=== PATIENT | female | born 1955 | race African-American/Black ===

== ENCOUNTER → 2018-03-06 | Outpatient (CLI) | payer MEDICARE, MEDICAID ==
[~2018-03-06] MED LIST: NOR10T PO; PHEN100C70 PO; PHEN32.49 PO
[2018-03-06 10:19] LABS: Basophils # (auto) 0 uL; Basophils % (auto) 0.5 % (0.0-2.0); Eosinophils # (auto) 0.1 uL; Eosinophils % (auto) 1.5 % (0.0-7.0); Hematocrit 39.9 % (36.0-46.0); Hemoglobin 13.1 g/dL (12.2-16.2); Lymphocytes # (auto) 2.7 uL; Lymphocytes % (auto) 33.9 % (10.0-50.0); Mean Corpuscular Hemoglobin 27.7 pg (28.0-32.0); Mean Corpuscular Hgb Conc. 32.7 g/dL (32.0-36.0); Mean Corpuscular Volume 84.7 fL (80.0-100.0); Monocytes # (auto) 0.5 uL; Monocytes % (auto) 5.8 % (0.0-12.0); Neutrophils # (auto) 4.6 uL; Neutrophils % (auto) 58.3 % (37.0-80.0); Platelet Count (auto) 341 10^3/uL (140-450); Red Blood Cells 4.71 10^6/uL (4.0-5.20); Red Cell Distribution Width 14.6 % (11.8-14.3); White Blood Cell 7.8 10^3/uL (4.4-10.8)
[2018-03-06 10:37] LABS: Urine Bacteria NONE SEEN /hpf (None Seen); Urine Blood Negative /uL (Negative); Urine Mucus FEW (None Seen); Urine Specific Gravity 1.012 (1.001-1.035); Urine WBC 9 /hpf (0 - 5)
[2018-03-06 10:39] LABS: Albumin 3.8 g/dL (3.4-5.0); BUN/Creatinine Ratio 16.7; Bilirubin, Total 0.4 mg/dL (0.2-1.0); Total Protein 7.8 g/dL (6.4-8.2)
== END | disposition home or self-care (01) ==
LOC: LAB 09:45
PROVIDERS: ATTEND Nurse Practitioner
DX: E78.5 Hyperlipidemia, unspecified (principal); E55.9 Vitamin D deficiency, unspecified; I12.9 Hypertensive chronic kidney disease with stage 1 through stage 4 chronic kidney disease, or unspecified chronic kidney disease; N18.2 Chronic kidney disease, stage 2 (mild)
CPT/HCPCS: 36415; 80053; 80061; 81001; 82306; 84443; 85025

== ENCOUNTER 2018-06-04 15:53 | Inpatient (IN) | payer MEDICARE, MEDICAID ==
[~2018-06-04] VITALS: Ht 154.9 cm; Wt 91.3 kg
[2018-06-04 02:30] VITALS: BP 144/80
[2018-06-04] MEDS ORDERED: ASPirin 81 mg TAB PO ONE (17:00)
[2018-06-04 17:17] LABS: Basophils # (auto) 0.1 uL; Basophils % (auto) 0.6 % (0.0-2.0); Eosinophils # (auto) 0.1 uL; Hematocrit 37.2 % (36.0-46.0); Hemoglobin 12.1 g/dL (12.2-16.2); Lymphocytes # (auto) 2.7 uL; Mean Corpuscular Hemoglobin 27.8 pg (28.0-32.0); Mean Corpuscular Hgb Conc. 32.5 g/dL (32.0-36.0); Mean Corpuscular Volume 85.6 fL (80.0-100.0); Monocytes # (auto) 0.5 uL; Monocytes % (auto) 4.7 % (0.0-12.0); Neutrophils # (auto) 6.4 uL; Neutrophils % (auto) 65.7 % (37.0-80.0); Nucleated Red Blood Cells % 0.1 %; Platelet Count (auto) 304 10^3/uL (140-450); Red Blood Cells 4.34 10^6/uL (4.0-5.20); Red Cell Distribution Width 13.8 % (11.8-14.3); White Blood Cell 9.7 10^3/uL (4.4-10.8)
[2018-06-04 17:24] LABS: Alanine Aminotransferase 18 U/L (13-56); Albumin 3.6 g/dL (3.4-5.0); Alkaline Phosphatase 56 U/L (45-117); Anion Gap 7 (5-15); Aspartate Aminotransferase 15 U/L (15-37); BUN/Creatinine Ratio 15.8; Bilirubin, Total 0.4 mg/dL (0.2-1.0); Blood Urea Nitrogen 16 mg/dL (7-18); Calcium 8.7 mg/dL (8.5-10.1); Carbon Dioxide 30 mmol/L (21-32); Chloride 106 mmol/L (98-107); GFR African American 71 mL/min; GFR Non-African American 59 mL/min; Glucose 116 mg/dL (74-106); Magnesium 2.3 mg/dL (1.6-2.6); Potassium 3.6 mmol/L (3.5-5.1); Sodium 143 mmol/L (136-145); Total Protein 7.3 g/dL (6.4-8.2)
[2018-06-04 18:10] LABS: Phenytoin (Dilantin) 1.1 ug/mL (10-20)
[2018-06-04] MEDS ORDERED: IOHEXOL 350 MG/ML 100ML IJ ONE (19:13)
[2018-06-04] MEDS ORDERED: MORPHINE SULFATE 4 MG/ML SYR/VIAL IV ONE (21:00)
[2018-06-04] MEDS ORDERED: PROMETHAZINE HCL 25 MG/ML 1ML IV ONE (21:00)
[2018-06-04] MEDS ORDERED: ACETAMINOPHEN 500 MG TAB PO PRN (22:30)
[2018-06-05] VITALS (7 sets, daily range): BP systolic 108–160; BP diastolic 68–93
[2018-06-05] MEDS ORDERED: LORazepam 2MG/ML-1ML VIAL IV PRN (00:15)
[2018-06-05] MEDS ORDERED: ALBUTEROL SULF 2.5 MG/0.5ML(0.5%) NEB SOLN ONE (01:04)
[2018-06-05] MEDS ORDERED: IPRATROPIUM BROM 0.5 MG/2.5ML INH SOL ONE (01:05)
[2018-06-05] MEDS: ALBUTEROL SULF 2.5 MG/0.5ML(0.5%) NEB SOLN NEB SCH ×4 (01:14→18:53)
[2018-06-05] MEDS: IPRATROPIUM BROM 0.5 MG/2.5ML INH SOL NEB SCH ×4 (01:14→18:53)
[2018-06-05] MEDS: PHENobarbital 32.4 MG TAB PO SCH ×3 (05:40→21:24)
[2018-06-05] MEDS: PHENYTOIN SODIUM 100 MG CAP PO SCH ×3 (05:40→21:24)
[2018-06-05 08:58] LABS: Basophils # (auto) 0.1 uL; Basophils % (auto) 0.9 % (0.0-2.0); Eosinophils # (auto) 0.2 uL; Eosinophils % (auto) 1.7 % (0.0-7.0); Hematocrit 39.8 % (36.0-46.0); Hemoglobin 12.9 g/dL (12.2-16.2); Lymphocytes # (auto) 3.1 uL; Lymphocytes % (auto) 31.5 % (10.0-50.0); Mean Corpuscular Hemoglobin 27.5 pg (28.0-32.0); Mean Corpuscular Hgb Conc. 32.3 g/dL (32.0-36.0); Mean Corpuscular Volume 85.1 fL (80.0-100.0); Monocytes # (auto) 0.6 uL; Neutrophils # (auto) 5.9 uL; Neutrophils % (auto) 59.9 % (37.0-80.0); Nucleated Red Blood Cells % 0.2 %; Platelet Count (auto) 281 10^3/uL (140-450); Red Blood Cells 4.68 10^6/uL (4.0-5.20); Red Cell Distribution Width 14.3 % (11.8-14.3); White Blood Cell 9.9 10^3/uL (4.4-10.8)
[2018-06-05 09:20] LABS: BUN/Creatinine Ratio 15.4; Calcium 7.2 mg/dL (8.5-10.1); Potassium 4.4 mmol/L (3.5-5.1)
[2018-06-05] MEDS: LOSARTAN POTASSIUM 50 MG TAB PO SCH (09:46)
[2018-06-05] MEDS: HYDROcodone-ACET 5/325MG TAB PO PRN ×2 (11:23→21:24)
[2018-06-05] MEDS ORDERED: cefTRIAXone 1GM/10ml IVPUSH 10 ML IV ONE (11:45)
[2018-06-05] MEDS ORDERED: METOPROLOL TARTRATE 25 MG TAB PO ONE (11:45)
[2018-06-05 21:20] LABS: Urine Bacteria NONE SEEN /hpf (None Seen); Urine Blood TRACE /uL (Negative); Urine Specific Gravity 1.017 (1.001-1.035); Urine WBC 154 /hpf (0 - 5)
[2018-06-05] MEDS: METOPROLOL TARTRATE 25 MG TAB PO SCH (21:25)
[2018-06-06] MEDS: IPRATROPIUM BROM 0.5 MG/2.5ML INH SOL NEB SCH ×3 (00:13→12:08)
[2018-06-06] MEDS: ALBUTEROL SULF 2.5 MG/0.5ML(0.5%) NEB SOLN NEB SCH ×3 (00:13→12:08)
[2018-06-06 05:01] VITALS: BP 135/92
[2018-06-06] MEDS: PHENYTOIN SODIUM 100 MG CAP PO SCH ×2 (06:04→14:30)
[2018-06-06] MEDS: PHENobarbital 32.4 MG TAB PO SCH ×2 (06:04→14:29)
[2018-06-06 09:00] VITALS: BP 135/81
[2018-06-06] MEDS ORDERED: cefTRIAXone 1GM/10ml IVPUSH 10 ML IV SCH (09:00)
[2018-06-06] MEDS: LOSARTAN POTASSIUM 50 MG TAB PO SCH (09:17)
[2018-06-06] MEDS: HYDROcodone-ACET 5/325MG TAB PO PRN (09:22)
[2018-06-06] MEDS: METOPROLOL TARTRATE 25 MG TAB PO SCH (10:00)
[2018-06-06 13:00] VITALS: BP 123/77
[2018-06-06 15:25] VITALS: BP 135/81
== END 2018-06-06 15:50 | disposition home or self-care (01) | DRG 204 ==
LOC: ER 15:53 → TELE 15:54 → TELE-WESTW 06-05 02:10
PROVIDERS: ADMIT Nurse Practitioner Family; ATTEND Family Medicine
DX: R07.81 Pleurodynia (principal); N39.0 Urinary tract infection, site not specified; J45.909 Unspecified asthma, uncomplicated; I10 Essential (primary) hypertension; F17.210 Nicotine dependence, cigarettes, uncomplicated; G40.909 Epilepsy, unspecified, not intractable, without status epilepticus; I11.9 Hypertensive heart disease without heart failure; M79.7 Fibromyalgia; R79.1 Abnormal coagulation profile; Z86.73 Personal history of transient ischemic attack (TIA), and cerebral infarction without residual deficits; Z71.6 Tobacco abuse counseling
CPT/HCPCS: 36415; 71046; 71275; 80048; 80053; 80184; 80185; 81001; 83735; 84484; 85025; 85379; 93005; 94640; 96374; 96375; J0696

== ENCOUNTER → 2018-10-02 | Outpatient (CLI) | payer MEDICARE, MEDICAID ==
[2018-10-02 13:03] LABS: Urine Bacteria FEW /hpf (None Seen); Urine Blood TRACE /uL (Negative); Urine Specific Gravity 1.018 (1.001-1.035); Urine WBC 11 /hpf (0 - 5)
[2018-10-02 13:58] LABS: Albumin 3.4 g/dL (3.4-5.0); BUN/Creatinine Ratio 16.5; Bilirubin, Total 0.4 mg/dL (0.2-1.0); Calcium 8.3 mg/dL (8.5-10.1); Total Protein 6.8 g/dL (6.4-8.2)
[2018-10-02 14:08] LABS: Basophils # (auto) 0 uL; Basophils % (auto) 0.3 % (0.0-2.0); Eosinophils # (auto) 0.1 uL; Hematocrit 38.1 % (36.0-46.0); Hemoglobin 12.3 g/dL (12.2-16.2); Lymphocytes # (auto) 2.4 uL; Lymphocytes % (auto) 30.5 % (10.0-50.0); Mean Corpuscular Hemoglobin 27.6 pg (28.0-32.0); Mean Corpuscular Hgb Conc. 32.2 g/dL (32.0-36.0); Mean Corpuscular Volume 85.6 fL (80.0-100.0); Monocytes # (auto) 0.5 uL; Monocytes % (auto) 6.8 % (0.0-12.0); Neutrophils # (auto) 4.9 uL; Neutrophils % (auto) 61.4 % (37.0-80.0); Platelet Count (auto) 320 10^3/uL (140-450); Red Blood Cells 4.44 10^6/uL (4.0-5.20); Red Cell Distribution Width 14.5 % (11.8-14.3)
== END | disposition home or self-care (01) ==
LOC: LAB 12:20
PROVIDERS: ATTEND Nurse Practitioner
DX: I10 Essential (primary) hypertension (principal); E78.5 Hyperlipidemia, unspecified
CPT/HCPCS: 36415; 80053; 80061; 81001; 85025

== ENCOUNTER → 2019-01-15 | Outpatient (CLI) | payer MEDICARE, MEDICAID ==
[2019-01-15 09:44] LABS: Basophils # (auto) 0 uL; Basophils % (auto) 0.3 % (0.0-2.0); Eosinophils # (auto) 0.1 uL; Eosinophils % (auto) 1.4 % (0.0-7.0); Hematocrit 39.4 % (36.0-46.0); Hemoglobin 12.7 g/dL (12.2-16.2); Lymphocytes % (auto) 39.2 % (10.0-50.0); Mean Corpuscular Hemoglobin 27.8 pg (28.0-32.0); Mean Corpuscular Hgb Conc. 32.3 g/dL (32.0-36.0); Monocytes # (auto) 0.5 uL; Monocytes % (auto) 6.1 % (0.0-12.0); Neutrophils # (auto) 4.1 uL; Nucleated Red Blood Cells % 0.1 %; Platelet Count (auto) 320 10^3/uL (140-450); Red Blood Cells 4.58 10^6/uL (4.0-5.20); White Blood Cell 7.7 10^3/uL (4.4-10.8)
[2019-01-15 09:53] LABS: Urine Bacteria FEW /hpf (None Seen); Urine Blood Negative /uL (Negative); Urine Specific Gravity 1.015 (1.001-1.035); Urine WBC 38 /hpf (0 - 5)
[2019-01-15 09:54] LABS: Potassium 4.3 mmol/L (3.5-5.1)
[2019-01-15 10:08] LABS: Albumin 3.6 g/dL (3.4-5.0); BUN/Creatinine Ratio 18.3; Bilirubin, Total 0.3 mg/dL (0.2-1.0); Calcium 8.9 mg/dL (8.5-10.1); Total Protein 7.3 g/dL (6.4-8.2)
== END | disposition home or self-care (01) ==
LOC: LAB 08:22
PROVIDERS: ATTEND Nurse Practitioner
DX: E78.5 Hyperlipidemia, unspecified (principal)
CPT/HCPCS: 36415; 80053; 80061; 81001; 84443; 85025

== ENCOUNTER 2019-06-08 11:10 | Emergency (ER) | payer MEDICARE, MEDICAID ==
[~2019-06-08] VITALS: Ht 154.9 cm; Wt 72.6 kg
[2019-06-08 12:15] VITALS: BP 110/78
[2019-06-08] MEDS ORDERED: KETOROLAC TROMETH 60MG/2ML VIAL IM ONE (12:30)
== END 2019-06-08 13:50 | disposition home or self-care (01) ==
LOC: ER 11:13
DX: S90.31XA Contusion of right foot, initial encounter (principal); J45.909 Unspecified asthma, uncomplicated; E78.5 Hyperlipidemia, unspecified; I10 Essential (primary) hypertension; F17.210 Nicotine dependence, cigarettes, uncomplicated; F12.10 Cannabis abuse, uncomplicated; R06.02 Shortness of breath; W22.8XXA Striking against or struck by other objects, initial encounter; Y93.89 Activity, other specified; Y92.89 Other specified places as the place of occurrence of the external cause; Y99.8 Other external cause status
CPT/HCPCS: 96372; 99283; J1885

== ENCOUNTER 2020-02-01 10:13 | Emergency (ER) | payer MEDICARE, MEDICAID ==
[~2020-02-01] VITALS: Ht 154.9 cm; Wt 74.8 kg
[~2020-02-01 10:13] MED LIST changes: +PHEN32.44 PO; -PHEN32.49 PO
[2020-02-01] MEDS ORDERED: cloNIDine HCL 0.1 MG TAB PO ONE (10:45)
[2020-02-01 11:46] LABS: Basophils # (auto) 0 10 ^3/uL (0-0.2); Basophils % (auto) 0.5 % (0.0-2.0); Eosinophils # (auto) 0.1 10 ^3/uL (0-0.8); Eosinophils % (auto) 1.9 % (0.0-7.0); Hematocrit 41.9 % (36.0-46.0); Hemoglobin 13.6 g/dL (12.2-16.2); Lymphocytes # (auto) 2.4 10 ^3/uL (0.4-5.4); Lymphocytes % (auto) 32.9 % (10.0-50.0); Mean Corpuscular Hgb Conc. 32.5 g/dL (32.0-36.0); Mean Corpuscular Volume 85.9 fL (80.0-100.0); Monocytes # (auto) 0.5 10 ^3/uL (0-1.3); Monocytes % (auto) 6.3 % (0.0-12.0); Neutrophils # (auto) 4.3 10 ^3/uL (1.6-8.6); Neutrophils % (auto) 58.4 % (37.0-80.0); Nucleated Red Blood Cells % 0.1 %; Platelet Count (auto) 325 10^3/uL (140-450); Red Blood Cells 4.88 10^6/uL (4.0-5.20); Red Cell Distribution Width 14.2 % (11.8-14.3); White Blood Cell 7.3 10^3/uL (4.4-10.8)
[2020-02-01 12:14] LABS: Albumin 3.9 g/dL (3.4-5.0); Anion Gap 5 (5-15); Blood Urea Nitrogen 15 mg/dL (7-18); Calcium 8.7 mg/dL (8.5-10.1); Carbon Dioxide 28 mmol/L (21-32); Chloride 107 mmol/L (98-107); Glucose 82 mg/dL (74-106); Potassium 4.7 mmol/L (3.5-5.1); Sodium 140 mmol/L (136-145)
[2020-02-01 12:20] LABS: Alanine Aminotransferase 21 U/L (13-56); Alkaline Phosphatase 73 U/L (45-117); Aspartate Aminotransferase 21 U/L (15-37); BUN/Creatinine Ratio 14.6; Bilirubin, Total 0.3 mg/dL (0.2-1.0); GFR African American 69 mL/min; GFR Non-African American 57 mL/min
[2020-02-01 13:25] VITALS: BP 159/94
== END 2020-02-01 13:30 | disposition home or self-care (01) ==
LOC: ER 10:13
DX: J01.00 Acute maxillary sinusitis, unspecified (principal); M32.9 Systemic lupus erythematosus, unspecified; M19.90 Unspecified osteoarthritis, unspecified site; J45.909 Unspecified asthma, uncomplicated; E78.5 Hyperlipidemia, unspecified; I10 Essential (primary) hypertension
CPT/HCPCS: 36415; 71045; 80053; 82728; 84484; 85025; 85613; 85670; 85705; 85732; 86225; 86235; 87070; 87804; 87880; 93005

== ENCOUNTER → 2020-09-16 | Outpatient (CLI) | payer MEDICARE, MEDICAID | END | disposition home or self-care (01) | LOC: XY 16:08 | PROVIDERS: ATTEND Student in an Organized Health Care Education/Training Program | DX: M62.838 Other muscle spasm (principal); I73.9 Peripheral vascular disease, unspecified; R60.0 Localized edema | CPT/HCPCS: 93925; 93970 ==

== ENCOUNTER 2021-03-28 12:21 | Emergency (ER) | payer MEDICARE, MEDICAID ==
[~2021-03-28] VITALS: Ht 154.9 cm; Wt 73.9 kg
[~2021-03-28 12:21] MED LIST changes: +PHEN100C PO; -PHEN100C70 PO
[2021-03-28 12:33] VITALS: BP 120/78
[2021-03-28] MEDS ORDERED: KETOROLAC TROMETH 60MG/2ML VIAL IM ONE (15:30)
== END 2021-03-28 16:28 | disposition home or self-care (01) ==
LOC: ER 12:21
DX: S76.011A Strain of muscle, fascia and tendon of right hip, initial encounter (principal); S30.0XXA Contusion of lower back and pelvis, initial encounter; Z86.73 Personal history of transient ischemic attack (TIA), and cerebral infarction without residual deficits; F32.9 Major depressive disorder, single episode, unspecified; E78.00 Pure hypercholesterolemia, unspecified; I10 Essential (primary) hypertension; F17.210 Nicotine dependence, cigarettes, uncomplicated; J45.909 Unspecified asthma, uncomplicated; Z79.899 Other long term (current) drug therapy; W01.0XXA Fall on same level from slipping, tripping and stumbling without subsequent striking against object, initial encounter; Y93.89 Activity, other specified; Y92.89 Other specified places as the place of occurrence of the external cause; Y99.8 Other external cause status
CPT/HCPCS: 72220; 73502; 96372; 99284; J1885

== ENCOUNTER 2021-07-18 15:59 | Emergency (ER) | payer MEDICARE, MEDICAID ==
[~2021-07-18] VITALS: Ht 152.4 cm; Wt 72.6 kg
[2021-07-18 16:41] VITALS: BP 147/86
== END 2021-07-18 17:23 | disposition home or self-care (01) ==
LOC: ER 16:00
DX: S63.501A Unspecified sprain of right wrist, initial encounter (principal); M11.231 Other chondrocalcinosis, right wrist; I10 Essential (primary) hypertension; E78.5 Hyperlipidemia, unspecified; J45.909 Unspecified asthma, uncomplicated; F17.210 Nicotine dependence, cigarettes, uncomplicated; Z90.89 Acquired absence of other organs; Z79.899 Other long term (current) drug therapy; W18.39XA Other fall on same level, initial encounter; Y93.89 Activity, other specified; Y92.89 Other specified places as the place of occurrence of the external cause; Y99.8 Other external cause status
CPT/HCPCS: 73110

== ENCOUNTER → 2021-07-22 | Outpatient (CLI) | payer MEDICARE, MEDICAID ==
[2021-07-22 11:11] LABS: Basophils # (auto) 0.1 10 ^3/uL (0-0.2); Basophils % (auto) 0.9 % (0.0-2.0); Eosinophils # (auto) 0.1 10 ^3/uL (0-0.8); Eosinophils % (auto) 1.2 % (0.0-7.0); Hematocrit 38.5 % (36.0-46.0); Hemoglobin 12.5 g/dL (12.2-16.2); Lymphocytes # (auto) 2.7 10 ^3/uL (0.4-5.4); Lymphocytes % (auto) 32.1 % (10.0-50.0); Mean Corpuscular Hemoglobin 27.1 pg (28.0-32.0); Mean Corpuscular Hgb Conc. 32.3 g/dL (32.0-36.0); Mean Corpuscular Volume 83.9 fL (80.0-100.0); Monocytes # (auto) 0.5 10 ^3/uL (0-1.3); Monocytes % (auto) 5.9 % (0.0-12.0); Neutrophils # (auto) 5.1 10 ^3/uL (1.6-8.6); Neutrophils % (auto) 59.9 % (37.0-80.0); Red Blood Cells 4.59 10^6/uL (4.0-5.20); Red Cell Distribution Width 14.3 % (11.8-14.3); White Blood Cell 8.5 10^3/uL (4.4-10.8)
[2021-07-22 11:38] LABS: Urine Bacteria NONE SEEN /hpf (None Seen); Urine Blood Negative /uL (Negative); Urine Specific Gravity 1.012 (1.001-1.035); Urine WBC 1 /hpf (0 - 5)
[2021-07-22 12:04] LABS: Albumin 3.4 g/dL (3.4-5.0); Calcium 9.4 mg/dL (8.5-10.1); Potassium 4.4 mmol/L (3.5-5.1)
[2021-07-22 12:09] LABS: BUN/Creatinine Ratio 18.9; Bilirubin, Total 0.4 mg/dL (0.2-1.0); Total Protein 7.1 g/dL (6.4-8.2)
== END | disposition home or self-care (01) ==
LOC: LAB 10:55
PROVIDERS: ATTEND Student in an Organized Health Care Education/Training Program
DX: I10 Essential (primary) hypertension (principal); M25.50 Pain in unspecified joint; Z79.899 Other long term (current) drug therapy
CPT/HCPCS: 36415; 80053; 80061; 81001; 85025; 86225; 86235; 87086

== ENCOUNTER 2021-10-12 05:30 | Emergency (ER) | payer MEDICARE, MEDICAID ==
[~2021-10-12] VITALS: Ht 172.7 cm; Wt 76.2 kg
[2021-10-12 09:17] VITALS: BP 143/92
== END 2021-10-12 09:45 | disposition home or self-care (01) ==
LOC: ER 05:30
DX: S16.1XXA Strain of muscle, fascia and tendon at neck level, initial encounter (principal); S83.91XA Sprain of unspecified site of right knee, initial encounter; S39.012A Strain of muscle, fascia and tendon of lower back, initial encounter; R51.9 Headache, unspecified; F17.210 Nicotine dependence, cigarettes, uncomplicated; V43.62XA Car passenger injured in collision with other type car in traffic accident, initial encounter; Y93.89 Activity, other specified; Y92.410 Unspecified street and highway as the place of occurrence of the external cause; Y99.8 Other external cause status
CPT/HCPCS: 29505; 70450; 72100; 72125; 73562; 93005

== ENCOUNTER → 2022-02-05 | Outpatient (CLI) | payer MEDICARE, MEDICAID, OTHER ==
[2022-02-05 10:35] LABS: Basophils # (auto) 0 10 ^3/uL (0-0.2); Basophils % (auto) 0.5 % (0.0-2.0); Eosinophils # (auto) 0.1 10 ^3/uL (0-0.8); Eosinophils % (auto) 1.2 % (0.0-7.0); Hematocrit 37.6 % (36.0-46.0); Hemoglobin 12.3 g/dL (12.2-16.2); Lymphocytes # (auto) 2.8 10 ^3/uL (0.4-5.4); Lymphocytes % (auto) 42.5 % (10.0-50.0); Mean Corpuscular Hemoglobin 27.1 pg (28.0-32.0); Mean Corpuscular Hgb Conc. 32.7 g/dL (32.0-36.0); Mean Corpuscular Volume 83.1 fL (80.0-100.0); Monocytes # (auto) 0.4 10 ^3/uL (0-1.3); Monocytes % (auto) 5.7 % (0.0-12.0); Neutrophils # (auto) 3.4 10 ^3/uL (1.6-8.6); Neutrophils % (auto) 50.1 % (37.0-80.0); Nucleated Red Blood Cells % 0.1 %; Red Blood Cells 4.52 10^6/uL (4.0-5.20); Red Cell Distribution Width 13.8 % (11.8-14.3); White Blood Cell 6.7 10^3/uL (4.4-10.8)
[2022-02-05 10:36] LABS: Urine Blood Negative /uL (Negative); Urine Specific Gravity 1.009 (1.001-1.035)
[2022-02-05 11:12] LABS: Albumin 3.6 g/dL (3.4-5.0); Calcium 8.8 mg/dL (8.5-10.1); Potassium 3.7 mmol/L (3.5-5.1)
[2022-02-05 11:19] LABS: BUN/Creatinine Ratio 20.3; Bilirubin, Total 0.6 mg/dL (0.2-1.0)
== END | disposition home or self-care (01) ==
LOC: LAB 10:02
PROVIDERS: ATTEND Student in an Organized Health Care Education/Training Program
DX: N39.0 Urinary tract infection, site not specified (principal); Z12.11 Encounter for screening for malignant neoplasm of colon; I10 Essential (primary) hypertension
CPT/HCPCS: 36415; 80053; 80061; 81003; 84443; 85025; 87086

== ENCOUNTER 2022-05-04 12:06 | Inpatient (IN) | payer MEDICARE, MEDICAID ==
[~2022-05-04] VITALS: Ht 152.4 cm; Wt 135.0 kg
[2022-05-04] MEDS ORDERED: FUROSEMIDE 40 MG/4 ML VIAL IV ONE (12:30)
[2022-05-04 13:41] LABS: Basophils # (auto) 0 10 ^3/uL (0-0.2); Eosinophils # (auto) 0.2 10 ^3/uL (0-0.8); Eosinophils % (auto) 2.4 % (0.0-7.0); Lymphocytes % (auto) 34.6 % (10.0-50.0); Red Cell Distribution Width 14.1 % (11.8-14.3)
[2022-05-04 13:44] LABS: Basophils % (auto) 0.6 % (0.0-2.0); Hematocrit 35.9 % (36.0-46.0); Hemoglobin 11.4 g/dL (12.2-16.2); Lymphocytes # (auto) 2.3 10 ^3/uL (0.4-5.4); Mean Corpuscular Hemoglobin 26.3 pg (28.0-32.0); Mean Corpuscular Hgb Conc. 31.7 g/dL (32.0-36.0); Monocytes # (auto) 0.6 10 ^3/uL (0-1.3); Monocytes % (auto) 8.7 % (0.0-12.0); Neutrophils # (auto) 3.6 10 ^3/uL (1.6-8.6); Neutrophils % (auto) 53.7 % (37.0-80.0); Red Blood Cells 4.33 10^6/uL (4.0-5.20); White Blood Cell 6.7 10^3/uL (4.4-10.8)
[2022-05-04 13:55] LABS: Albumin 3.4 g/dL (3.4-5.0); Calcium 8.9 mg/dL (8.5-10.1); Magnesium 2.3 mg/dL (1.6-2.6); Potassium 3.8 mmol/L (3.5-5.1)
[2022-05-04 13:59] LABS: BUN/Creatinine Ratio 23.6; Bilirubin, Total 0.3 mg/dL (0.2-1.0); Total Protein 6.9 g/dL (6.4-8.2)
[2022-05-04] MEDS ORDERED: ONDANSETRON HCL 4 MG/2 ML VIAL IV PRN (21:45)
[2022-05-04] MEDS ORDERED: ACETAMINOPHEN 325 MG TAB PO PRN (21:45)
[2022-05-04] MEDS ORDERED: TEMAZEPAM 15 MG CAP PO PRN (22:00)
[2022-05-04] MEDS: PHENobarbital 32.4 MG TAB PO SCH (22:13)
[2022-05-04] MEDS: ATORVASTATIN 20 MG TAB PO SCH (22:13)
[2022-05-04] MEDS: PHENYTOIN SODIUM 100 MG CAP PO SCH (22:14)
[2022-05-04] MEDS ORDERED: MORPHINE SULFATE INJ 2 MG/ml SYRG IV PRN (23:00)
[2022-05-04] MEDS ORDERED: NITROGLYCERIN 0.4 MG SL TAB SL PRN (23:00)
[2022-05-05 04:41] LABS: Basophils # (auto) 0 10 ^3/uL (0-0.2); Basophils % (auto) 0.7 % (0.0-2.0); Eosinophils # (auto) 0.2 10 ^3/uL (0-0.8); Eosinophils % (auto) 2.7 % (0.0-7.0); Hematocrit 36.8 % (36.0-46.0); Hemoglobin 11.6 g/dL (12.2-16.2); Lymphocytes # (auto) 2.5 10 ^3/uL (0.4-5.4); Lymphocytes % (auto) 36.7 % (10.0-50.0); Mean Corpuscular Hemoglobin 25.8 pg (28.0-32.0); Mean Corpuscular Hgb Conc. 31.5 g/dL (32.0-36.0); Mean Corpuscular Volume 82.1 fL (80.0-100.0); Monocytes # (auto) 0.5 10 ^3/uL (0-1.3); Monocytes % (auto) 7.6 % (0.0-12.0); Neutrophils # (auto) 3.6 10 ^3/uL (1.6-8.6); Neutrophils % (auto) 52.3 % (37.0-80.0); Red Blood Cells 4.49 10^6/uL (4.0-5.20); Red Cell Distribution Width 14.1 % (11.8-14.3); White Blood Cell 6.9 10^3/uL (4.4-10.8)
[2022-05-05 04:59] LABS: Albumin 3.5 g/dL (3.4-5.0); BUN/Creatinine Ratio 26.3; Calcium 8.6 mg/dL (8.5-10.1); Potassium 3.6 mmol/L (3.5-5.1)
[2022-05-05 05:02] LABS: Bilirubin, Total 0.3 mg/dL (0.2-1.0); Total Protein 6.7 g/dL (6.4-8.2)
[2022-05-05] MEDS ORDERED: IOHEXOL 350 MG/ML 100ML IJ ONE (05:16)
[2022-05-05] MEDS: PHENYTOIN SODIUM 100 MG CAP PO SCH ×3 (06:12→22:00)
[2022-05-05] MEDS: PHENobarbital 32.4 MG TAB PO SCH ×3 (06:12→21:59)
[2022-05-05] MEDS ORDERED: methylPREDNISolone SOD SUCC 40 MG/ML VL IV ONE (08:15)
[2022-05-05 08:36] VITALS: BP 125/72
[2022-05-05 09:00] VITALS: BP 130/78
[2022-05-05] MEDS: amLODIPine BESYLATE 5 MG TAB PO SCH (09:44)
[2022-05-05] MEDS: ENOXAPARIN SOD 40 MG/0.4 ML SYRINGE SC SCH (09:45)
[2022-05-05] MEDS: PANTOPRAZOLE 40 MG TAB PO SCH (09:45)
[2022-05-05 10:00] VITALS: BP 116/68
[2022-05-05] MEDS ORDERED: ASPirin 81 mg TAB PO SCH (10:00)
[2022-05-05] MEDS: ALBUTEROL SULF 2.5 MG/0.5ML(0.5%) NEB SOLN NEB SCH ×2 (11:44→18:07)
[2022-05-05] MEDS: IPRATROPIUM BROM 0.5 MG/2.5ML INH SOL NEB SCH ×2 (11:45→18:07)
[2022-05-05] MEDS ORDERED: ASPirin-EC 81 mg tab PO ONE (11:45)
[2022-05-05 13:00] VITALS: BP 117/70
[2022-05-05] MEDS: methylPREDNISolone SOD SUCC 40 MG/ML VL IV SCH ×2 (13:27→21:59)
[2022-05-05 16:59] VITALS: BP 108/66
[2022-05-05] MEDS ORDERED: ERGOCALCIFEROL 50,000 UNIT(1.25MG) CAP PO SCH (18:45)
[2022-05-05 22:00] VITALS: BP 103/65
[2022-05-05] MEDS: ATORVASTATIN 20 MG TAB PO SCH (22:00)
[2022-05-06] MEDS: ALBUTEROL SULF 2.5 MG/0.5ML(0.5%) NEB SOLN NEB SCH ×6 (00:09→23:47)
[2022-05-06] MEDS: IPRATROPIUM BROM 0.5 MG/2.5ML INH SOL NEB SCH ×6 (00:09→23:47)
[2022-05-06 05:00] VITALS: BP 121/71
[2022-05-06 06:31] LABS: Basophils # (auto) 0 10 ^3/uL (0-0.2); Basophils % (auto) 0.1 % (0.0-2.0); Eosinophils # (auto) 0 10 ^3/uL (0-0.8); Hematocrit 37.9 % (36.0-46.0); Hemoglobin 12.1 g/dL (12.2-16.2); Lymphocytes # (auto) 1.5 10 ^3/uL (0.4-5.4); Lymphocytes % (auto) 10.1 % (10.0-50.0); Mean Corpuscular Hemoglobin 26.5 pg (28.0-32.0); Mean Corpuscular Hgb Conc. 31.8 g/dL (32.0-36.0); Mean Corpuscular Volume 83.2 fL (80.0-100.0); Monocytes # (auto) 0.7 10 ^3/uL (0-1.3); Monocytes % (auto) 4.7 % (0.0-12.0); Neutrophils # (auto) 12.3 10 ^3/uL (1.6-8.6); Neutrophils % (auto) 85.1 % (37.0-80.0); Red Blood Cells 4.55 10^6/uL (4.0-5.20); Red Cell Distribution Width 14.3 % (11.8-14.3); White Blood Cell 14.5 10^3/uL (4.4-10.8)
[2022-05-06 06:36] LABS: Calcium 8.8 mg/dL (8.5-10.1); Chloride 109 mmol/L (98-107); Potassium 4.3 mmol/L (3.5-5.1); Sodium 141 mmol/L (136-145)
[2022-05-06 06:39] LABS: Alanine Aminotransferase 21 U/L (13-56); Albumin 3.2 g/dL (3.4-5.0); Anion Gap 7 (5-15); Aspartate Aminotransferase 18 U/L (15-37); BUN/Creatinine Ratio 25.8; Blood Urea Nitrogen 24 mg/dL (7-18); Carbon Dioxide 25 mmol/L (21-32); GFR African American 77 mL/min; GFR Non-African American 64 mL/min; Glucose 149 mg/dL (74-106)
[2022-05-06 06:42] LABS: Alkaline Phosphatase 96 U/L (45-117); Bilirubin, Total 0.2 mg/dL (0.2-1.0); Total Protein 6.9 g/dL (6.4-8.2)
[2022-05-06 06:45] LABS: Phenytoin (Dilantin) 4.6 ug/mL (10-20)
[2022-05-06] MEDS ORDERED: ERGOCALCIFEROL 50,000 UNIT(1.25MG) CAP PO SCH (07:15)
[2022-05-06] MEDS ORDERED: ADENOSINE 64 MG in GIVE UN-DILUTED 0 ML IV ONE (08:00)
[2022-05-06 09:00] VITALS: BP 136/78
[2022-05-06] MEDS: ENOXAPARIN SOD 40 MG/0.4 ML SYRINGE SC SCH (10:15)
[2022-05-06] MEDS: ASPirin-EC 81 mg tab PO SCH (10:15)
[2022-05-06] MEDS: amLODIPine BESYLATE 5 MG TAB PO SCH (10:15)
[2022-05-06] MEDS: METOPROLOL TARTRATE 25 MG TAB PO SCH ×2 (10:16→22:16)
[2022-05-06] MEDS: DOXYCYCLINE 100 MG TAB/CAP PO SCH ×2 (10:16→22:16)
[2022-05-06] MEDS: PANTOPRAZOLE 40 MG TAB PO SCH (10:27)
[2022-05-06 13:00] VITALS: BP 117/77
[2022-05-06] MEDS: PHENobarbital 32.4 MG TAB PO SCH ×3 (14:00→22:10)
[2022-05-06] MEDS: PHENYTOIN SODIUM 100 MG CAP PO SCH ×3 (14:00→22:11)
[2022-05-06] MEDS: methylPREDNISolone SOD SUCC 40 MG/ML VL IV SCH ×3 (14:00→22:10)
[2022-05-06 17:00] VITALS: BP 90/59
[2022-05-06] MEDS: ATORVASTATIN 20 MG TAB PO SCH (22:17)
[2022-05-07 05:00] VITALS: BP 105/52
[2022-05-07] MEDS: PHENobarbital 32.4 MG TAB PO SCH (06:02)
[2022-05-07] MEDS: methylPREDNISolone SOD SUCC 40 MG/ML VL IV SCH (06:02)
[2022-05-07] MEDS: PHENYTOIN SODIUM 100 MG CAP PO SCH (06:02)
[2022-05-07 07:06] VITALS: BP 114/68
[2022-05-07 07:09] LABS: BUN/Creatinine Ratio 36.1; Calcium 8.7 mg/dL (8.5-10.1); Magnesium 2.2 mg/dL (1.6-2.6); Potassium 4.5 mmol/L (3.5-5.1)
[2022-05-07 08:00] VITALS: BP 114/68
[2022-05-07 08:57] VITALS: BP 114/68
[2022-05-07] MEDS: ASPirin-EC 81 mg tab PO SCH (09:06)
[2022-05-07] MEDS: PANTOPRAZOLE 40 MG TAB PO SCH (09:07)
[2022-05-07] MEDS: amLODIPine BESYLATE 5 MG TAB PO SCH (09:07)
[2022-05-07] MEDS: DOXYCYCLINE 100 MG TAB/CAP PO SCH (09:07)
[2022-05-07] MEDS: METOPROLOL TARTRATE 25 MG TAB PO SCH (09:08)
[2022-05-07] MEDS: ENOXAPARIN SOD 40 MG/0.4 ML SYRINGE SC SCH (09:08)
[2022-05-07 12:57] VITALS: BP 131/84
[2022-05-07] MEDS ORDERED: ERGO1CAP23 PO (12:58)
[2022-05-07] MEDS ORDERED: DOX100T PO (12:58)
[2022-05-07] MEDS ORDERED: MET25T PO (12:58)
[2022-05-07] MEDS ORDERED: METOPROLOL TARTRATE 25 MG TAB PO SCH (22:00)
== END 2022-05-07 15:14 | disposition home or self-care (01) | DRG 189 ==
LOC: ER 12:06 → TELE 22:48 → TELE-CENTR 05-05 08:17
PROVIDERS: ADMIT Nurse Practitioner; ATTEND Internal Medicine
DX: J96.00 Acute respiratory failure, unspecified whether with hypoxia or hypercapnia (principal); J45.901 Unspecified asthma with (acute) exacerbation; I47.2 Ventricular tachycardia; E66.01 Morbid (severe) obesity due to excess calories; E78.5 Hyperlipidemia, unspecified; F17.210 Nicotine dependence, cigarettes, uncomplicated; J44.9 Chronic obstructive pulmonary disease, unspecified; G40.909 Epilepsy, unspecified, not intractable, without status epilepticus; F32.A Depression, unspecified; Z20.822 Contact with and (suspected) exposure to COVID-19; I10 Essential (primary) hypertension; M19.90 Unspecified osteoarthritis, unspecified site; Z71.6 Tobacco abuse counseling; Z79.82 Long term (current) use of aspirin; Z79.899 Other long term (current) drug therapy; Z86.73 Personal history of transient ischemic attack (TIA), and cerebral infarction without residual deficits; Z71.3 Dietary counseling and surveillance
CPT/HCPCS: 36415; 71046; 71275; 78452; 80048; 80053; 80184; 80185; 82040; 82306; 83036; 83735; 83880; 84100; 84439; 84443; 84480; 84484; 85025; 85379; 93017; 93306; 93970; 94640; 96374; G0378; J0153

== ENCOUNTER 2022-07-16 10:32 | Emergency (ER) | payer MEDICARE, MEDICAID ==
[~2022-07-16] VITALS: Ht 162.6 cm; Wt 81.8 kg
[~2022-07-16 10:32] MED LIST changes: +DOX100T PO; +ERGO1CAP23 PO; +MET25T PO
[2022-07-16] MEDS ORDERED: ASPirin 325 MG TAB PO ONE (10:45)
[2022-07-16 10:49] LABS: Basophils # (auto) 0.1 10 ^3/uL (0-0.2); Mean Corpuscular Volume 83.3 fL (80.0-100.0); Monocytes # (auto) 0.4 10 ^3/uL (0-1.3); Neutrophils # (auto) 3.8 10 ^3/uL (1.6-8.6); Nucleated Red Blood Cells % 0.1 %; Red Cell Distribution Width 15.2 % (11.8-14.3)
[2022-07-16 10:51] LABS: Basophils % (auto) 0.8 % (0.0-2.0); Eosinophils # (auto) 0.2 10 ^3/uL (0-0.8); Eosinophils % (auto) 2.5 % (0.0-7.0); Hematocrit 37.1 % (36.0-46.0); Hemoglobin 11.8 g/dL (12.2-16.2); Lymphocytes # (auto) 2.3 10 ^3/uL (0.4-5.4); Lymphocytes % (auto) 34.2 % (10.0-50.0); Mean Corpuscular Hemoglobin 26.5 pg (28.0-32.0); Mean Corpuscular Hgb Conc. 31.8 g/dL (32.0-36.0); Neutrophils % (auto) 56.5 % (37.0-80.0); Red Blood Cells 4.46 10^6/uL (4.0-5.20); White Blood Cell 6.7 10^3/uL (4.4-10.8)
[2022-07-16 11:04] LABS: INR 0.95 (0.9-1.15); Partial Thromboplastin Time 27.8 sec (24.6-33.4)
[2022-07-16 11:09] LABS: Albumin 3.5 g/dL (3.4-5.0); Calcium 8.8 mg/dL (8.5-10.1)
[2022-07-16 11:15] LABS: BUN/Creatinine Ratio 18.9; Bilirubin, Total 0.5 mg/dL (0.2-1.0); Total Protein 6.6 g/dL (6.4-8.2)
[2022-07-16 13:29] VITALS: BP 154/93
== END 2022-07-16 13:28 | disposition home or self-care (01) ==
LOC: ER 10:32
DX: R07.89 Other chest pain (principal); M54.2 Cervicalgia; M54.9 Dorsalgia, unspecified; I10 Essential (primary) hypertension; E78.5 Hyperlipidemia, unspecified; J45.909 Unspecified asthma, uncomplicated; M19.90 Unspecified osteoarthritis, unspecified site; Z90.89 Acquired absence of other organs; F17.210 Nicotine dependence, cigarettes, uncomplicated
CPT/HCPCS: 36415; 71045; 80053; 83735; 83880; 84443; 84484; 85025; 85610; 85730; 93005

== ENCOUNTER 2023-03-26 09:33 | Emergency (ER) | payer MEDICARE, MEDICAID ==
[~2023-03-26] VITALS: Ht 152.4 cm; Wt 75.9 kg
[2023-03-26 09:33] VITALS: BP 91/67
[2023-03-26] MEDS ORDERED: HYDROcodone-ACET 5/325MG TAB PO ONE (10:15)
[2023-03-26] MEDS ORDERED: IBUP-1456 PO (10:31)
== END 2023-03-26 10:53 | disposition home or self-care (01) ==
LOC: ER 09:33
DX: M23.92 Unspecified internal derangement of left knee (principal); M25.462 Effusion, left knee; M19.90 Unspecified osteoarthritis, unspecified site; J45.909 Unspecified asthma, uncomplicated; F32.9 Major depressive disorder, single episode, unspecified; I10 Essential (primary) hypertension; F17.210 Nicotine dependence, cigarettes, uncomplicated; Z86.73 Personal history of transient ischemic attack (TIA), and cerebral infarction without residual deficits; Z90.89 Acquired absence of other organs; Z79.899 Other long term (current) drug therapy
CPT/HCPCS: 73562

== ENCOUNTER → 2023-04-04 | Outpatient (CLI) | payer OTHER, MEDICAID ==
[~2023-04-04] MED LIST changes: +IBUP-1456 PO
[2023-04-04 11:58] LABS: Basophils # (auto) 0 10 ^3/uL (0-0.2); Basophils % (auto) 0.4 % (0.0-2.0); Eosinophils # (auto) 0.1 10 ^3/uL (0-0.8); Eosinophils % (auto) 1.1 % (0.0-7.0); Hematocrit 36.7 % (36.0-46.0); Hemoglobin 11.8 g/dL (12.2-16.2); Lymphocytes # (auto) 2.5 10 ^3/uL (0.4-5.4); Mean Corpuscular Hemoglobin 27.1 pg (28.0-32.0); Mean Corpuscular Volume 84.5 fL (80.0-100.0); Monocytes # (auto) 0.6 10 ^3/uL (0-1.3); Neutrophils % (auto) 68.5 % (37.0-80.0); Red Blood Cells 4.34 10^6/uL (4.0-5.20); Red Cell Distribution Width 13.6 % (11.8-14.3); White Blood Cell 10.3 10^3/uL (4.4-10.8)
[2023-04-04 12:13] LABS: Albumin 3.3 g/dL (3.4-5.0); Calcium 8.4 mg/dL (8.5-10.1)
[2023-04-04 12:17] LABS: Phenytoin (Dilantin) 1.1 ug/mL (10-20)
[2023-04-04 12:19] LABS: BUN/Creatinine Ratio 20.2 (10.0-20.0); Bilirubin, Total 0.3 mg/dL (0.2-1.0); Total Protein 6.8 g/dL (6.4-8.2)
[2023-04-04 12:28] LABS: Urine Bacteria NONE SEEN /hpf (None Seen); Urine Blood Negative /uL (Negative); Urine Mucus FEW (None Seen); Urine Specific Gravity 1.025 (1.001-1.035); Urine WBC 10 /hpf (0 - 5)
== END | disposition home or self-care (01) ==
LOC: LAB 10:50
PROVIDERS: ATTEND Student in an Organized Health Care Education/Training Program
DX: I10 Essential (primary) hypertension (principal); E78.5 Hyperlipidemia, unspecified
CPT/HCPCS: 36415; 80053; 80061; 80184; 80185; 81001; 83036; 85025

== ENCOUNTER → 2023-04-13 | Outpatient (CLI) | payer MEDICARE, MEDICAID | END | disposition home or self-care (01) | LOC: LAB 12:35 | PROVIDERS: ATTEND Student in an Organized Health Care Education/Training Program | DX: I10 Essential (primary) hypertension (principal); E78.5 Hyperlipidemia, unspecified | CPT/HCPCS: 82274 ==

== ENCOUNTER 2023-09-23 08:56 | Emergency (ER) | payer OTHER, MEDICAID ==
[~2023-09-23] VITALS: Ht 162.6 cm; Wt 77.3 kg
[2023-09-23 09:16] VITALS: PULSE 51; RESP 20; TEMP 97.8; O2SAT 96
[2023-09-23] MEDS ORDERED: SODIUM CHLORIDE 0.9% 1,000 ML IV ONE (09:45)
[2023-09-23 09:47] LABS: Basophils # (auto) 0 10 ^3/uL (0-0.2); Basophils % (auto) 0.3 % (0.0-2.0); Eosinophils # (auto) 0 10 ^3/uL (0-0.8); Eosinophils % (auto) 0.4 % (0.0-7.0); Hematocrit 39.5 % (36.0-46.0); Hemoglobin 12.6 g/dL (12.2-16.2); Lymphocytes # (auto) 3.5 10 ^3/uL (0.4-5.4); Mean Corpuscular Volume 84.4 fL (80.0-100.0); Monocytes # (auto) 0.8 10 ^3/uL (0-1.3); Neutrophils # (auto) 5.4 10 ^3/uL (1.6-8.6); Neutrophils % (auto) 55.3 % (37.0-80.0); Nucleated Red Blood Cells % 0.1 %; Red Blood Cells 4.68 10^6/uL (4.0-5.20); Red Cell Distribution Width 14.4 % (11.8-14.3); White Blood Cell 9.8 10^3/uL (4.4-10.8)
[2023-09-23 09:54] LABS: Alanine Aminotransferase 12 U/L (7-40); Albumin 4.5 g/dL (3.2-4.8); Alkaline Phosphatase 46 U/L (46-116); Anion Gap 11 (5-15); Aspartate Aminotransferase 21 U/L (13-40); BUN/Creatinine Ratio 17.4 (10.0-20.0); Bilirubin, Total 0.4 mg/dL (0.2-1.0); Blood Urea Nitrogen 15 mg/dL (9-23); Calcium 9.4 mg/dL (8.5-10.1); Carbon Dioxide 25 mmol/L (20-30); Chloride 106 mmol/L (98-107); Glucose 100 mg/dL (74-106); Potassium 3.5 mmol/L (3.5-5.1); Sodium 142 mmol/L (136-145); Total Protein 7.1 g/dL (5.7-8.2)
[2023-09-23 10:02] LABS: INR 1.02 (0.9-1.15); Partial Thromboplastin Time 29.2 SEC (24.5-34.5); Prothrombin Time 10.7 sec (9.3-11.8)
[2023-09-23 12:10] LABS: Urine Bacteria FEW /hpf (None Seen); Urine Blood Negative /uL (Negative); Urine Clarity HAZY (Clear); Urine Color Yellow (Yellow); Urine Mucus FEW (None Seen); Urine Protein, UAD TRACE (Negative); Urine Specific Gravity 1.026 (1.001-1.035); Urine WBC 8 /hpf (0 - 5)
[2023-09-23] MEDS ORDERED: cefTRIAXone 1GM/50ML D5W 50 ML IV ONE (13:00)
[2023-09-23] MEDS ORDERED: GLUCAGON EMERG KIT 1mg/1ml IV ONE (13:15)
[2023-09-23] MEDS ORDERED: NITR-87 PO (14:09)
[2023-09-23 14:28] VITALS: BP 130/73; PULSE 46; RESP 23; O2SAT 100
== END 2023-09-23 14:35 | disposition home or self-care (01) ==
LOC: ER 08:56
DX: R00.1 Bradycardia, unspecified (principal); N39.0 Urinary tract infection, site not specified; I10 Essential (primary) hypertension; J45.909 Unspecified asthma, uncomplicated; M19.90 Unspecified osteoarthritis, unspecified site; F17.210 Nicotine dependence, cigarettes, uncomplicated; Z86.73 Personal history of transient ischemic attack (TIA), and cerebral infarction without residual deficits
CPT/HCPCS: 36415; 70450; 71045; 80053; 81001; 84484; 85025; 85610; 85730; 93005; 96361; 96365; 99285; J0696; J7030